=== PATIENT | female | born 1990 | race African-American/Black ===

== ENCOUNTER 2020-02-15 12:36 | Emergency (ER) | payer OTHER ==
[~2020-02-15] VITALS: Ht 167.6 cm; Wt 74.8 kg
[2020-02-15 12:37] VITALS: BP 132/80
== END 2020-02-15 13:55 | disposition home or self-care (01) ==
LOC: ER 12:36
DX: S61.412A Laceration without foreign body of left hand, initial encounter (principal); Z23 Encounter for immunization; W26.0XXA Contact with knife, initial encounter; Y93.89 Activity, other specified; Y92.89 Other specified places as the place of occurrence of the external cause; Y99.8 Other external cause status